=== PATIENT | female | born 1945 | race Caucasian/White ===

== ENCOUNTER 2017-09-22 19:59 | Emergency (ER) | payer OTHER, MEDICARE ==
[2017-09-22 21:10] LABS: PLATELET COUNT 293 10^3/uL (150-400)
--- NOTE | 2017-09-22 21:24 | CPEKG ---
Heart Rate: 94 RR Interval: 638 P-R Interval: 208 QRSD Interval: 100 QT Interval: 364 QTC Interval: 456 P [place]: 58 QRS [place]: -16 T Wave [place]: 79 EKG Severity - OTHERWISE NORMAL ECG - EKG Impression: SINUS RHYTHM EKG Impression: BORDERLINE LEFT AXIS DEVIATION Electronically Signed By: Norma Gaspar 23-Sep-2017 08:15:40
[2017-09-22 22:06] VITALS: BP 176/88
--- NOTE | 2017-09-22 22:22 | EDPHY ---
H & P Stated Complaint: ELEVATED BP 206/107 SINCE TODAY Time Seen by Provider: 09/22/17 20:38 HPI/ROS: Chief complaint: Elevated blood pressure History of present illness: This is a 72-year-old female who presents to the emergency department for elevated blood pressure. Patient has a history of hypertension. She is currently on valsartan 50 mg daily and amlodipine 5 mg every other day in the evening. She has been monitoring her blood pressure regularly and has been maintained in the systolic range of 120-140. However today when measuring her blood pressure she noted that it was in the 190s over 100s. On my evaluation she states she feels unwell. She has felt unwell for some time since tapering off hormone replacement therapy. She is primarily complaining of hot sweats. She denies headache, paresthesias, weakness or paralysis or bowel or bladder dysfunction, shortness of breath or cough, no changes in bowel or bladder function. Review of systems: A 10 point review of systems was obtained and other than described above was negative - Personal History Current Tetanus Diphtheria and Acellular Pertussis (TDAP): Unsure - Medical/Surgical History Hx Asthma: No Hx Chronic Respiratory Disease: No Hx Diabetes: No Hx Cardiac Disease: No Hx Renal Disease: No Hx Cirrhosis: No Hx Alcoholism: No Hx HIV/AIDS: No Hx Splenectomy or Spleen Trauma: No Other PMH: HTN (borderline). Uterine prolapse and hysterectomy - Social History Smoking Status: Never smoked - Physical Exam Exam: General Appearance: Alert, nontoxic. Eyes: Pupils equal and round no pallor or injection. ENT, Mouth: Mucous membranes moist. Respiratory: There are no retractions, lungs are clear to auscultation. Cardiovascular: Regular rate and rhythm. Radial pulses 2+ and symmetrical. Gastrointestinal: Abdomen is soft and non tender, no masses, bowel sounds normal. Neurological: Alert and oriented x4. Cranial nerves 2-12 grossly intact. Strength and sensation intact and symmetrical. No pronator drift. No meningismus. Ambulating without difficulty. Skin: Warm and dry, no rashes. Musculoskeletal: Neck is supple non tender. Extremities are symmetrical, full range of motion. No edema to the lower extremities. Psychiatric: Patient is oriented X 3, there is no agitation. Constitutional: Initial Vital Signs Temperature (C) 36.9 C 09/22/17 20:20 Heart Rate 107 H 09/22/17 20:20 Respiratory Rate 16 09/22/17 20:20 Blood Pressure 206/107 H 09/22/17 20:20 O2 Sat (%) 97 09/22/17 20:20 O2 Delivery Mode Room Air Allergies/Adverse Reactions: No Known Allergies Allergy (Verified 09/22/17 20:19) Home Medications: Medication Instructions Recorded Estrogen Patch 06/24/14 Supplements 06/24/14 Losartan Potassium 09/22/17 amLODIPine BESYLATE 09/22/17 Medical Decision Making ED Course/Re-evaluation: Patient discussed with my primary supervising physician Dr. Yadira Marie. Patient presents to the emergency department concerned she has elevated blood pressure. She is otherwise nontoxic. She has no specific complaint, especially related to hypertensive crises, she has an unremarkable physical exam including a nonfocal neurologic exam. Blood studies and EKG unremarkable. On re-evaluation her blood pressure has dropped to 178/88 on its own. She will be discharged home. I have asked her to contact her primary care doctor 1st thing in the morning to discuss further management of her blood pressure. Return precautions are given. The patient voiced understanding and agreement with plan. Differential Diagnosis: Included but not limited to hypertension, hypertensive urgency, hypertensive emergency, medication noncompliance - Data Points Laboratory Results: Laboratory Results 09/22/17 20:55 09/22/17 20:55 09/22/17 09/22/17 20:55 20:55 WBC 6.59 10^3/uL 10^3/uL (3.80-9.50) RBC 4.40 10^6/uL 10^6/uL (4.18-5.33) Hgb 13.4 g/dL g/dL (12.6-16.3) Hct 37.8 % L % (38.0-47.0) MCV 85.9 fL fL (81.5-99.8) MCH 30.5 pg pg (27.9-34.1) MCHC 35.4 g/dL g/dL (32.4-36.7) RDW 11.9 % % (11.5-15.2) Plt Count 293 10^3/uL 10^3/uL (150-400) MPV 9.0 fL fL (8.7-11.7) Neut % (Auto) 73.0 % % (39.3-74.2) Lymph % (Auto) 20.0 % % (15.0-45.0) [place] % (Auto) 5.5 % % (4.5-13.0) Eos % (Auto) 0.8 % % (0.6-7.6) Baso % (Auto) 0.5 % % (0.3-1.7) Nucleat RBC Rel Count 0.0 % % (0.0-0.2) Absolute Neuts (auto) 4.82 10^3/uL 10^3/uL (1.70-6.50) Absolute Lymphs (auto) 1.32 10^3/uL 10^3/uL (1.00-3.00) Absolute Monos (auto) 0.36 10^3/uL 10^3/uL (0.30-0.80) Absolute Eos (auto) 0.05 10^3/uL 10^3/uL (0.03-0.40) Absolute Basos (auto) 0.03 10^3/uL 10^3/uL (0.02-0.10) Absolute Nucleated RBC 0.00 10^3/uL 10^3/uL (0-0.01) Immature Gran % 0.2 % % (0.0-1.1) Immature Gran # 0.01 10^3/uL 10^3/uL (0.00-0.10) Sodium 130 mEq/L L mEq/L (135-145) Potassium 4.1 mEq/L mEq/L (3.5-5.2) Chloride 94 mEq/L L mEq/L (97-110) Carbon Dioxide 22 mEq/l mEq/l (22-31) Anion Gap 14 mEq/L mEq/L (8-16) BUN 23 mg/dL mg/dL (7-23) Creatinine 0.8 mg/dL mg/dL (0.6-1.0) Estimated GFR > 60 Glucose 105 mg/dL H mg/dL (70-100) Calcium 9.8 mg/dL mg/dL (8.5-10.4) Troponin I < 0.012 ng/mL ng/mL (0.000-0.034) Departure - Departure Disposition: Home, Routine, Self-Care Clinical Impression: Hypertension Qualifiers: Hypertension type: unspecified Qualified Code(s): I10 - Essential (primary) hypertension Condition: Good Instructions: Hypertension (ED) Additional Instructions: Please call and follow up with your primary care doctor tomorrow for recheck to discuss management of your high blood pressure If symptoms worsen or new symptoms develop return to the emergency room for recheck Referrals: JOAN AUGUST MD [Other] - As per Instructions
== END 2017-09-22 22:39 | disposition home or self-care (01) ==
DX: I10 Essential (primary) hypertension (principal)